=== PATIENT | female | born 1955 | race Caucasian/White ===

== ENCOUNTER 2017-03-03 13:15 | Emergency (ER) | payer MEDICAID, OTHER ==
[2017-03-03] MEDS ORDERED: Albuterol/Ipratropium 3.0-0.5 MG/3 ML Neb Soln NEB ONE (13:42)
--- NOTE | 2017-03-03 13:44 | EDM.PDOC ---
ED HISTORY OF PRESENT ILLNESS - General Chief Complaint: Cardiovascular Problem Stated Complaint: HEART ISSUES Time Seen by Provider: 03/03/17 13:30 Source of Information: Reports: Patient History Limitations: Reports: No limitations - History of Present Illness INITIAL COMMENTS - FREE TEXT/NARRATIVE: 61-year-old female presents the ED to to continued productive cough and dyspnea on exertion for the last 10 days. She fell she came down with a cold that moved into her chest. She has perhaps had a low-grade fever at times some mild diaphoresis earlier this morning. She's completed a Z-Parmjit and also a Depo- Medrol pack with minimal improvement. She has chronic COPD and known coronary disease having had a stent placed in march of last year after an [place]. She has no history of CHF. Productive sounding cough but she is not producing much sputum. She has not had any medication changes in the last 6 weeks. She's been on Spiriva and Symbicort inhalers for many years. No orthopnea or PND. She did have a flu shot last fall. Symptom Onset Date: 02/23/17 Timing/Duration: Reports: Hour(s):, Gradual onset Severity: moderate Location, General: Reports: chest (Dyspnea and productive sounding cough.) Quality: Reports: Other (Slight heaviness in her chest and some pain with coughing.) Improves with: Reports: Rest Worsens with: Reports: Movement Context, General: Denies: Activity, Exercise, Lifting, Sick contact, Trauma, Other Associated Symptoms (General): Reports: chest pain, cough (With coughing. Productive sounding cough with very little sputum production.), diaphoresis, malaise, shortness of breath, weakness. 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) - Related Data Allergies/ADRs: Allergies Allergy/AdvReac Type Severity Reaction Status Date / Time meperidine HCl [From Demerol] Allergy Rash Verified 03/03/17 13:41 tetracycline [Tetracycline] Allergy Itching Verified 03/03/17 13:41 Home Meds: Home Meds Aspirin [[place] Aspirin] 81 mg PO BEDTIME 02/25/16 [History] Budesonide/Formoterol [Symbicort 160-4.5 MCG] 2 puff INH BID 02/25/16 [History] FLUoxetine HCl [Fluoxetine HCl] 40 mg PO DAILY 02/25/16 [History] metFORMIN [Glucophage] 500 mg PO DAILY 02/25/16 [History] Fluticasone Propionate [Flonase] 2 spray NASBOTH DAILY 04/15/16 [History] Lisinopril 20 mg PO DAILY 04/15/16 [History] Metoprolol Tartrate 25 mg PO BID 04/15/16 [History] Tiotropium [Spiriva HandiHaler] 2 tab INH BEDTIME 04/15/16 [History] atorvaSTATin [Lipitor] 40 mg PO BEDTIME 04/15/16 [History] Clopidogrel [Plavix] 0 mg PO DAILY 05/02/16 [History] oxyCODONE HCl/Acetaminophen [Percocet 10-325 mg Tablet] 1 each PO Q6H PRN [History] Levofloxacin [Levaquin] 500 mg PO Q24H #10 tablet 03/03/17 [Rx] Prednisone [IMW: predniSONE] 20 mg PO ASDIRECTED #18 tab 03/03/17 [Rx] guaiFENesin [Mucinex] 600 mg PO TID #30 tab.er 03/03/17 [Rx] Past Medical History HEENT History: Reports: Impaired vision Other HEENT History: wears eyeglasses Cardiovascular History: Reports: Heart Failure, High cholesterol, Hypertension, [place], Stents (Has one stent in place. Remains on Plavix.) Respiratory History: Reports: COPD, Sleep apnea Other Respiratory History: wears C-PAP while sleeping. Gastrointestinal History: Reports: Chronic diarrhea Genitourinary History: Reports: Urinary incontinence Musculoskeletal History: Reports: Back pain, chronic, Osteoarthritis, Other ( see below) Other Musculoskeletal History: DDD, bulging L5 Neurological History: Reports: Other (see below) Other Neuro History: restless legs Psychiatric History: Reports: Anxiety, Depression Endocrine/Metabolic History: Reports: Diabetes, type II - Past Surgical History GI Surgical History: Reports: Cholecystectomy Female Surgical History: Reports: Tubal ligation Neurological Surgical History: Reports: C-Spine Social & Family History - Family History Cardiac: Reports: Aneurysm, [place] - Tobacco Use Smoking Status *Q: Current Every Day Smoker Years of Tobacco use: 40 Packs/Tins Daily: 0.1 Second Hand Smoke Exposure: No - Recreational Drug Use Recreational Drug Use: No - Living Situation & Occupation Living situation: Reports: single, alone Occupation: employed (physical laboratory assistant) ED ROS GENERAL - Review of Systems Review Of Systems: See Below Constitutional: Reports: chills, malaise, weakness, fatigue, diaphoresis ( Little diaphoresis this morning.). Denies: decreased appetite, weight loss HEENT: Reports: Throat pain (Mild) Respiratory: Reports: Shortness of Breath, Wheezing, Cough (Productive sounding cough but). Denies: Pleuritic Chest Pain, Hemoptysis ( animal sputum production produce.) Cardiovascular: Reports: Chest pain (Upper mid chest from coughing.), Blood pressure problem (Lately blood pressures been known to be running low like 96- 98 systolic.), Dyspnea on exertion. Denies: Claudication, Edema, Lightheadedness, Orthopnea, Palpitations Endocrine: Reports: fatigue GI/Abdominal: Reports: No symptoms : Reports: no symptoms Musculoskeletal: Reports: no symptoms Skin: Reports: no symptoms Neurological: Reports: No Symptoms ED EXAM, GENERAL - Physical Exam Exam: See Below Exam Limited By: No limitations General Appearance: alert, WD/WN, no apparent distress, other (O2 sat to 94% on room air) Eye Exam: bilateral eye: normal inspection Ears: normal TMs Nose: other Throat/Mouth: Normal inspection, Normal lips, Normal teeth, Normal oropharynx Head: atraumatic, normocephalic Neck: normal inspection, supple, non-tender, full range of motion, other (No jugular venous pulsation elevation). No: carotid bruit, lymphadenopathy (L), lymphadenopathy (R), thyromegaly Respiratory/Chest: respiratory distress (Mild tachypnea at rest.), decreased breath sounds (Bilateral expiratory wheezing particularly pronounced in the base of both lungs. Mildly decreased entry to both bases), rhonchi (Throughout all lung [place] perhaps a little worse on the left compared to the right. Some clearing with coughing.), wheezing Cardiovascular: normal peripheral pulses, regular rate, rhythm, no edema, no gallop, no murmur GI/Abdominal: normal bowel sounds, soft, non tender, no organomegaly, no distention Back Exam: normal inspection, full range of motion. No: CVA tenderness (L), CVA tenderness (R) Extremities: normal inspection, normal range of motion, non-tender, no pedal edema, normal capillary refill Neurological: alert, oriented, CN II-XII intact, normal cognition, no motor/ sensory deficits Psychiatric: normal affect, normal mood Skin Exam: Warm, Dry, Intact, Normal color, No rash EKG INTERPRETATION EKG Date: 03/03/17 Time: 13:30 Rhythm: NSR Rate (beats/min): 96 [place]: normal P-wave: present QRS: other (There are Q waves in leads 23 and aVF that are less than 25% of the QRS complex and are usually considered insignificant. 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.) ST-T: normal QT: normal Course - Vital Signs Last Recorded V/S: Last Vital Signs Temp 35.4 C 03/03/17 13:34 Pulse 92 03/03/17 13:34 Resp 20 03/03/17 13:34 BP 98/65 03/03/17 13:34 Pulse Ox 96 03/03/17 14:03 - Orders/Labs/Meds Orders: Active Orders 24 hr Category Date Time Status EKG Documentation Completion [RC] STAT Care 03/03/17 13:40 Active RT Aerosol Therapy [RC] ASDIRECTED Care 03/03/17 13:42 Active Chest 2V [CR] Stat Exams 03/03/17 13:40 Taken INFLUENZA A+B AG SCREEN [RM] Stat Lab 03/03/17 14:21 Received URINALYSIS W/MICROSCOPIC [UA W/MICROSCOPIC] [URIN] Stat Lab 03/03/17 13:41 Uncollected Labs: Laboratory Tests 03/03/17 03/03/17 03/03/17 Range/Units 13:33 13:33 13:33 WBC 8.38 (3.98-10.04) K/mm3 RBC 4.50 (3.98-5.22) M/mm3 Hgb 14.5 (11.2-15.7) gm/L Hct 43.5 (34.1-44.9) % MCV 96.7 H (79.4-94.8) fl MCH 32.2 (25.6-32.2) pg MCHC 33.3 (32.2-35.5) g/dl RDW Std Deviation 46.5 H (36.4-46.3) fL Plt Count 343 (182-369) K/mm3 MPV 8.8 L (9.4-12.3) fl Neutrophils % (Manual) 63 H (40-60) % Band Neutrophils % 2 (0-10) % Lymphocytes % (Manual) 30 (20-40) % Atypical Lymphs % 0 % Monocytes % (Manual) 3 (2-10) % Eosinophils % (Manual) 2 (0.7-5.8) % Basophils % (Manual) 0 L (0.1-1.2) Platelet Estimate Adequate Plt Morphology Comment Normal RBC Morph Comment Normal Sodium 138 (136-145) mEq/L Potassium 4.1 (3.5-5.1) mEq/L Chloride 101 (98-107) mEq/L Carbon Dioxide 29 (21-32) mEq/L Anion Gap 12.1 (5-15) BUN 19 H (7-18) mg/dL Creatinine 0.9 (0.55-1.02) mg/dL Est Cr Clr Drug Dosing 49.53 mL/min Estimated GFR (MDRD) > 60 (>60) mL/min BUN/Creatinine Ratio 21.1 H (14-18) Glucose 120 H (80-115) mg/dL Calcium 9.6 (8.5-10.1) mg/dL Total Bilirubin 0.4 (0.2-1.0) mg/dL AST 19 (15-37) U/L ALT 37 (14-59) U/L Alkaline Phosphatase 83 (46-116) U/L CK-MB (CK-2) 1.1 (0-3.6) ng/ml Troponin I < 0.017 (0.00-0.056) ng/mL C-Reactive Protein < 0.2 (<1.0) mg/dL B-Natriuretic Peptide 73 (0-100) pg/mL Total Protein 7.0 (6.4-8.2) g/dl Albumin 3.9 (3.4-5.0) g/dl Globulin 3.1 gm/dL Albumin/Globulin Ratio 1.3 (1-2) Mycoplasma pneumon IgM Negative (NEGATIVE) Meds: Medications Discontinued Medications Generic Name Dose Route Start Last Admin Trade Name Freq PRN Reason Stop Dose Admin Albuterol/Ipratropium 3 ml 03/03/17 13:42 03/03/17 14:03 Duoneb 3.0-0.5 Mg/3 Ml NEB 03/03/17 13:43 3 ml ONETIME ONE Administration - Radiology Interpretation Free Text/Narrative:: 61-year-old female presents to the ED for evaluation of persistent paroxysmal cough and chest congestion and shortness of breath. Has been ill for about 10 days. Not aware of any fever per se. She's been on a course of Z-Parmjit and a course of Depo-Medrol without much benefit. She has COPD and uses her to troponin and Spiriva daily. Isn't able to produce much in the way of sputum. She does have a history of coronary disease having had myocardial infarction and one stent placement back in March last year. No history of congestive heart failure. She has no true orthopnea or PND. No hemoptysis. No history of DVT or recent prolonged O2 sats are 94% on room air with mild tachypnea at 20 breaths per minute. Plan 2 view chest x-ray routine labs including a BMP and cardiac markers. ECG shows sinus rhythm at 96 per minute with no evidence of acute ischemic changes. - Re-Assessments/Exams Free Text/Narrative Re-Assessment/Exam: 03/03/17 14:00 2 view chest x-ray has been completed. There is mild hyperinflation of the lung [place]. However the lungs are clear without any evidence of pneumonia or pulmonary vascular congestion. 03/03/17 14:42 labs are back and reveal a normal white count at 8.38 with 63% it fills and 2% bands. Hemoglobin is 14.5 hematocrit is 43.5. MCV is mildly elevated at 96.7. Platelets normal 243,000. Chemistry is normal with a blood sugar of 120 CRP is less than 0.2. Patient be treated with a more prolonged course of course of prednisone using 20 mg morning and evening for 6 days then one tablet in the morning only for further 6 days. Mucinex 600 mg 3 times daily for 10 days to breakup sputum. Levaquin 500 mg once daily for the next 10 days as well. Cardiac markers were normal and BMP was less than 100. Therefore no evidence of heart related illness causing her dyspnea. She continues to have problems she may have to adopt a home nebulizer treatment regime to help medications which do. Her lungs to reduce the inflammation. Departure - Departure Time of Disposition: 14:33 Disposition: Home, Self-Care 01 Condition: fair Clinical Impression: Bronchitis, Acute exacerbation of chronic obstructive pulmonary disease Prescriptions: Levofloxacin [Levaquin] 500 mg PO Q24H #10 tablet Prednisone [IMW: predniSONE] 20 mg PO ASDIRECTED #18 tab guaiFENesin [Mucinex] 600 mg PO TID #30 tab.er Referrals: Gogo Cheney, [employer] [Primary Care Provider] - Forms: ED Department Discharge Additional Instructions: Evaluation in emergency him today in regards to persistent cough and increasing shortness of breath over the last 10 days. History of chronic obstructive pulmonary disease for which you take Spiriva and Symbicort . Known history of coronary disease with previous heart attack and one stent placement. Evaluation carried out to the ED with does not reveal any evidence of heart related illness. There is no extra fluid in the lungs or evidence of heart problems. Chest x-ray is clear with no evidence of any pneumonia. Diagnosis is bronchitis with aggravation of your chronic obstructive pulmonary disease. Going to treat you with a ten-day course of Levaquin 500 mg once daily to clear up any potential infection the lung. Use prednisone 20 mg in the morning and with supper for 6 days and then one tablet in the morning only for further 6 days to reduce inflammation of the lungs and Mucinex 600 mg 3 times daily for the next 10 days to loosen up secretions so that she can cough sputum up. Followup with personal care physician in 10 days' time or sooner if any other problems occur. Of note her blood sugars may run a little high we'll you on the prednisone but will return to normal vision within 4 or 5 days of finishing the prednisone - My Orders Last 24 Hours: My Active Orders 03/03/17 13:40 EKG Documentation Completion [RC] STAT Chest 2V [CR] Stat 03/03/17 13:41 URINALYSIS W/MICROSCOPIC [UA W/MICROSCOPIC] [URIN] Stat 03/03/17 13:42 RT Aerosol Therapy [RC] ASDIRECTED 03/03/17 14:21 INFLUENZA A+B AG SCREEN [RM] Stat - Assessment/Plan Last 24 Hours: My Active Orders 03/03/17 13:40 EKG Documentation Completion [RC] STAT Chest 2V [CR] Stat 03/03/17 13:41 URINALYSIS W/MICROSCOPIC [UA W/MICROSCOPIC] [URIN] Stat 03/03/17 13:42 RT Aerosol Therapy [RC] ASDIRECTED 03/03/17 14:21 INFLUENZA A+B AG SCREEN [RM] Stat
--- NOTE | 2017-03-03 14:42 | CR ---
Chest: Two views of the chest were obtained. Comparison: Previous chest x-ray of 03/11/16. Heart size and mediastinum are normal. Lungs are clear with no acute infiltrates. Previous cervical spine surgery is noted. Scattered degenerative spurring within the spine is seen. Impression: 1. Incidental findings. Nothing acute is identified on two-view chest x-ray. Diagnostic code #2
[2017-03-03 15:19] VITALS: BP 108/74
== END 2017-03-03 15:10 | disposition home or self-care (01) ==
LOC: JD.ED 13:15
DX: J44.0 Chronic obstructive pulmonary disease with (acute) lower respiratory infection (principal); J20.9 Acute bronchitis, unspecified; J44.1 Chronic obstructive pulmonary disease with (acute) exacerbation; I11.0 Hypertensive heart disease with heart failure; I50.9 Heart failure, unspecified; E11.9 Type 2 diabetes mellitus without complications; Z79.84 Long term (current) use of oral hypoglycemic drugs; M19.90 Unspecified osteoarthritis, unspecified site; F32.9 Major depressive disorder, single episode, unspecified; F41.9 Anxiety disorder, unspecified; F17.200 Nicotine dependence, unspecified, uncomplicated; Z88.6 Allergy status to analgesic agent; Z88.1 Allergy status to other antibiotic agents; Z79.82 Long term (current) use of aspirin; Z79.02 Long term (current) use of antithrombotics/antiplatelets; Z79.899 Other long term (current) drug therapy
CPT/HCPCS: 36415; 71020; 71020-26; 80053; 82553; 83880; 84484; 85025; 86140; 86738; 87804; 93005; 94664; 99284; 99285-25

== ENCOUNTER 2017-12-08 14:31 | Emergency (ER) | payer MEDICAID ==
[2017-12-08 14:41] VITALS: BP 94/66
[2017-12-08] MEDS ORDERED: Sodium Chloride 0.9% 10 ML Syringe FLUSH PRN (14:55)
--- NOTE | 2017-12-08 14:55 | EDM.PDOC ---
ED HPI GENERAL MEDICAL PROBLEM - General Chief Complaint: Respiratory Problem Stated Complaint: CHEST DISCOMFORT AND SOB Time Seen by Provider: 12/08/17 14:54 Source of Information: Reports: Patient History Limitations: Reports: No Limitations - History of Present Illness INITIAL COMMENTS - FREE TEXT/NARRATIVE: 62-year-old female sent across from [facility] where she presented with dyspnea and cyanosis centrally nose and ache relief in her fingers. Patient has a history of COPD and sleep apnea syndrome and previous myocardial infarctions with CHF. L for the last 2 weeks with productive cough. 2 weeks ago she was seen with bronchitis negative chest x-ray for pneumonia. She was treated with a Z-Parmjit and a weaning course of prednisone. She was seen a week later and continued to have paroxysmal productive cough and was then placed back on a short course of prednisone and her Bumex 1 mg daily. When she first started the Bumex she states she lost 8 pounds in 2 days. She does not feel like her legs are swollen at all. She has somebody paroxysmal cough with a clear phlegm. She uses a CPAP machine at bedtime. Hasn't been sleeping very well as of late. But can't lay flat to sleep. Appetite remains quite good. She plays out very easily on minimal exertion. She reports her sats were as low as 86% when she attended the clinic last. Usually she is around 94% on room air .Does not use oxygen at home Onset: Gradual (Over the last 3-4 days.) Onset Date: 12/04/17 (Just simply not getting better as since adding Bumex and prednisone to her treatment plan.) Duration: Day(s): Location: Reports: Chest (Productive cough shortness of breath on minimal exertion.) Quality: Reports: Other Severity: Moderate (Dyspnea.) Improves with: Reports: Rest Worsens with: Reports: Movement (Any can of exertion makes her dyspneic.) Context: Denies: Activity, Exercise, Lifting, Sick Contact, Trauma, Other Associated Symptoms: Reports: Cough, cough w sputum, Fever/Chills, Malaise, Shortness of Breath, Weakness. Denies: Confusion, Chest Pain, Diaphoresis ( Mostly clear.), Headaches (Did have fever with initial illness 2 weeks ago but not since.), Loss of Appetite, Nausea/Vomiting, Rash, Seizure, Syncope Treatments COLLECTION COORDINATOR: Reports: Other (see below) (None.) - Related Data Allergies Allergy/AdvReac Type Severity Reaction Status Date / Time meperidine HCl [From Demerol] Allergy Rash Verified 12/08/17 14:36 tetracycline [Tetracycline] Allergy Itching Verified 12/08/17 14:36 Home Meds: Home Meds Aspirin [Upson Aspirin] 81 mg PO DAILY 02/25/16 [History] Budesonide/Formoterol [Symbicort 160-4.5 MCG] 2 puff INH BID 02/25/16 [History] metFORMIN [Glucophage] 500 mg PO DAILY 02/25/16 [History] Lisinopril 40 mg PO DAILY 04/15/16 [History] Metoprolol Tartrate 100 mg PO BID 04/15/16 [History] Tiotropium [Spiriva HandiHaler] 2 puff INH DAILY 04/15/16 [History] atorvaSTATin [Lipitor] 40 mg PO DAILY 04/15/16 [History] Clopidogrel [Plavix] 75 mg PO DAILY 05/02/16 [History] oxyCODONE HCl/Acetaminophen [Percocet 10-325 mg Tablet] 1 each PO Q6H PRN [History] Prednisone [IMW: predniSONE] 20 mg PO ASDIRECTED #18 tab 03/03/17 [Rx] Albuterol [IJD: Albuterol] 2.5 mg NEB Q4H PRN #120 ml 12/08/17 [Rx] Albuterol [Proventil Neb Soln] 2.5 mg INH QID 12/08/17 [History] Albuterol/Ipratropium [DuoNeb 3.0-0.5 MG/3 ML] 3 ml NEB QID #80 neb 12/08/17 [Rx ] Bumetanide [Bumex] 2 mg PO DAILY 12/08/17 [History] DULoxetine [Cymbalta] 60 mg PO DAILY 12/08/17 [History] Diltiazem [Diltiazem XR] 240 mg PO DAILY 12/08/17 [History] Gabapentin [Neurontin] 300 mg PO TID 12/08/17 [History] Hydrochlorothiazide 25 mg PO DAILY 12/08/17 [History] Metaxalone [Metaxall] 800 mg PO TID 12/08/17 [History] Psyllium Husk [Metamucil] 0.4 gm PO DAILY 12/08/17 [History] guaiFENesin [Mucinex] 600 mg PO BID 12/08/17 [History] traZODone HCl [Trazodone HCl] 50 mg PO BEDTIME PRN 12/08/17 [History] Past Medical History HEENT History: Reports: Impaired Vision Other HEENT History: wears eyeglasses Cardiovascular History: Reports: Heart Failure, High Cholesterol, Hypertension, NM, Stents Respiratory History: Reports: COPD, Sleep Apnea Other Respiratory History: wears C-PAP while sleeping. Gastrointestinal History: Reports: Chronic Diarrhea Genitourinary History: Reports: Urinary Incontinence Musculoskeletal History: Reports: Back Pain, Chronic, Osteoarthritis, Other ( See Below) Other Musculoskeletal History: DDD, bulging L5 Neurological History: Reports: Other (See Below) Other Neuro History: restless legs Psychiatric History: Reports: Anxiety, Depression Endocrine/Metabolic History: Reports: Diabetes, Type II - Infectious Disease History Infectious Disease History: Reports: Chicken Pox, Measles - Past Surgical History Female Surgical History: Reports: Tubal Ligation Social & Family History - Family History Family Medical History: Noncontributory Cardiac: Reports: Aneurysm, NM - Tobacco Use Smoking Status *Q: Current Every Day Smoker Years of Tobacco use: 45 Packs/Tins Daily: 0.5 Second Hand Smoke Exposure: No - Caffeine Use Caffeine Use: Reports: Tea Caffeine Use Comment: Daily - Recreational Drug Use Recreational Drug Use: No - Living Situation & Occupation Living situation: Reports: Single, Alone Occupation: Employed ED ROS GENERAL - Review of Systems Review Of Systems: See Below Constitutional: Reports: Fever, Malaise, Weakness, Fatigue, Weight Loss ( Prostate pounds of weight after starting Bumex one week ago --.). Denies: Chills (Only with initial onset of illness 2 weeks ago.) HEENT: Reports: Glasses Respiratory: Reports: Shortness of Breath, Wheezing, Cough, Sputum. Denies: Pleuritic Chest Pain, Hemoptysis, Other (Mostly clear.) Cardiovascular: Reports: Blood Pressure Problem, Dyspnea on Exertion. Denies: Chest Pain, Claudication, Edema, Lightheadedness, Orthopnea, Palpitations Endocrine: Reports: Fatigue GI/Abdominal: Denies: Abdominal Pain, Anorexia, Black Stool, Bloody Stool, Constipation, Diarrhea, Decreased Appetite, Difficulty Swallowing, Distension, Flatus, Hematemesis, Hematochezia, Melena : Reports: Frequency Musculoskeletal: Reports: Back Pain Skin: Reports: No Symptoms Neurological: Reports: No Symptoms Psychiatric: Reports: No Symptoms Hematologic/Lymphatic: Reports: No Symptoms Immunologic: Reports: No Symptoms ED EXAM, GENERAL - Physical Exam Exam: See Below Exam Limited By: No Limitations General Appearance: Alert, WD/WN, No Apparent Distress, Other (No evidence of a cooler central cyanosis on my examination. O2 sats ranged from 91-94% on room air.) Eye Exam: Bilateral Eye: Normal Inspection Ears: Normal TMs Nose: Normal Inspection, Normal Mucosa, No Blood. 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 She's not sure which levels were fused.). No: Lymphadenopathy (L), Lymphadenopathy (R) Respiratory/Chest: No Respiratory Distress, No Accessory Muscle Use, Chest Non- Tender, Decreased Breath Sounds (Mildly decreased breath sounds to the lower 20 % of lung catalan.), Wheezing (Diffuse wheezing throughout both lung catalan.). No: Normal Breath Sounds, Crackles, Rales, Accessory Muscle Use Cardiovascular: Normal Peripheral Pulses, Regular Rate, Rhythm, No Edema, No Gallop, No Murmur, No Rub Peripheral Pulses: 1+: Posterior Tibial (L), Posterior Tibial (R), Dorsalis Pedis (L), Dorsalis Pedis (R) GI/Abdominal: Normal Bowel Sounds, Soft, Non-Tender, No Organomegaly Back Exam: Normal Inspection, Full Range of Motion. No: CVA Tenderness (L), CVA Tenderness (R) Extremities: Normal Inspection, Normal Range of Motion, Non-Tender, No Pedal Edema Neurological: Alert, Oriented, CN II-XII Intact, Normal Cognition Psychiatric: Normal Affect, Normal Mood Skin Exam: Warm, Dry, Intact, Normal Color, No Rash EKG INTERPRETATION EKG Date: 12/08/17 Time: 14:55 Rhythm: NSR Rate (Beats/Min): 93 [place]: Normal P-Wave: Present QRS: Normal ST-T: Normal QT: Normal Course - Vital Signs Last Recorded V/S: Last Vital Signs Temp 35.4 C 12/08/17 14:36 Pulse 96 12/08/17 14:36 Resp 14 12/08/17 14:36 BP 94/66 12/08/17 14:36 Pulse Ox 94 L 12/08/17 16:50 - Orders/Labs/Meds Labs: Laboratory Tests 12/08/17 12/08/17 12/08/17 Range/Units 14:45 14:45 14:45 WBC 8.38 (3.98-10.04) K/mm3 RBC 5.16 (3.98-5.22) M/mm3 Hgb 16.1 H (11.2-15.7) gm/L Hct 46.3 H (34.1-44.9) % MCV 89.7 (79.4-94.8) fl MCH 31.2 (25.6-32.2) pg MCHC 34.8 (32.2-35.5) g/dl RDW Std Deviation 42.7 (36.4-46.3) fL Plt Count 325 (182-369) K/mm3 MPV 9.2 L (9.4-12.3) fl Neutrophils % (Manual) 74 H (40-60) % Band Neutrophils % 0 (0-10) % Lymphocytes % (Manual) 20 (20-40) % Atypical Lymphs % 3 % Monocytes % (Manual) 3 (2-10) % Eosinophils % (Manual) 0 L (0.7-5.8) % Basophils % (Manual) 0 L (0.1-1.2) Platelet Estimate Adequate Plt Morphology Comment Normal RBC Morph Comment Normal PT (8.0-13.0) SECONDS INR D-Dimer, Quantitative 0.24 (0.19-0.59) mg/L Puncture Site ABG pH (7.35-7.45) ABG pCO2 (35.0-45.0) mmHg ABG pO2 (80.0-100.0) mmHg ABG HCO3 (22.0-26.0) meq/L ABG O2 Saturation (96.0-97.0) % ABG Base Excess (-2-2.0) Philip Test O2 Delivery Device FiO2 (21.00-100.00) % Sodium 130 L (136-145) mEq/L Potassium 3.6 (3.5-5.1) mEq/L Chloride 88 L (98-107) mEq/L Carbon Dioxide 31 (21-32) mEq/L Anion Gap 14.6 (5-15) BUN 29 H (7-18) mg/dL Creatinine 1.3 H (0.55-1.02) mg/dL Est Cr Clr Drug Dosing 35.49 mL/min Estimated GFR (MDRD) 42 (>60) mL/min BUN/Creatinine Ratio 22.3 H (14-18) Glucose 225 H (80-115) mg/dL Calcium 10.6 H (8.5-10.1) mg/dL Magnesium (1.8-2.4) mg/dl Total Bilirubin 0.8 (0.2-1.0) mg/dL AST 24 (15-37) U/L ALT 35 (14-59) U/L Alkaline Phosphatase 67 (46-116) U/L CK-MB (CK-2) 1.5 (0-3.6) ng/ml Troponin I < 0.017 (0.00-0.056) ng/mL C-Reactive Protein (<1.0) mg/dL NT-Pro-B Natriuret Pep (0-125) pg/mL Total Protein 7.7 (6.4-8.2) g/dl Albumin 4.3 (3.4-5.0) g/dl Globulin 3.4 gm/dL Albumin/Globulin Ratio 1.3 (1-2) 12/08/17 12/08/17 12/08/17 Range/Units 14:45 14:45 14:45 WBC (3.98-10.04) K/mm3 RBC (3.98-5.22) M/mm3 Hgb (11.2-15.7) gm/L Hct (34.1-44.9) % MCV (79.4-94.8) fl MCH (25.6-32.2) pg MCHC (32.2-35.5) g/dl RDW Std Deviation (36.4-46.3) fL Plt Count (182-369) K/mm3 MPV (9.4-12.3) fl Neutrophils % (Manual) (40-60) % Band Neutrophils % (0-10) % Lymphocytes % (Manual) (20-40) % Atypical Lymphs % % Monocytes % (Manual) (2-10) % Eosinophils % (Manual) (0.7-5.8) % Basophils % (Manual) (0.1-1.2) Platelet Estimate Plt Morphology Comment RBC Morph Comment PT 9.5 (8.0-13.0) SECONDS INR 0.88 D-Dimer, Quantitative (0.19-0.59) mg/L Puncture Site ABG pH (7.35-7.45) ABG pCO2 (35.0-45.0) mmHg ABG pO2 (80.0-100.0) mmHg ABG HCO3 (22.0-26.0) meq/L ABG O2 Saturation (96.0-97.0) % ABG Base Excess (-2-2.0) Philip Test O2 Delivery Device FiO2 (21.00-100.00) % Sodium (136-145) mEq/L Potassium (3.5-5.1) mEq/L Chloride (98-107) mEq/L Carbon Dioxide (21-32) mEq/L Anion Gap (5-15) BUN (7-18) mg/dL Creatinine (0.55-1.02) mg/dL Est Cr Clr Drug Dosing mL/min Estimated GFR (MDRD) (>60) mL/min BUN/Creatinine Ratio (14-18) Glucose (80-115) mg/dL Calcium (8.5-10.1) mg/dL Magnesium 1.7 L (1.8-2.4) mg/dl Total Bilirubin (0.2-1.0) mg/dL AST (15-37) U/L ALT (14-59) U/L Alkaline Phosphatase (46-116) U/L CK-MB (CK-2) (0-3.6) ng/ml Troponin I (0.00-0.056) ng/mL C-Reactive Protein < 0.2 (<1.0) mg/dL NT-Pro-B Natriuret Pep (0-125) pg/mL Total Protein (6.4-8.2) g/dl Albumin (3.4-5.0) g/dl Globulin gm/dL Albumin/Globulin Ratio (1-2) 12/08/17 12/08/17 Range/Units 14:49 16:55 WBC (3.98-10.04) K/mm3 RBC (3.98-5.22) M/mm3 Hgb (11.2-15.7) gm/L Hct (34.1-44.9) % MCV (79.4-94.8) fl MCH (25.6-32.2) pg MCHC (32.2-35.5) g/dl RDW Std Deviation (36.4-46.3) fL Plt Count (182-369) K/mm3 MPV (9.4-12.3) fl Neutrophils % (Manual) (40-60) % Band Neutrophils % (0-10) % Lymphocytes % (Manual) (20-40) % Atypical Lymphs % % Monocytes % (Manual) (2-10) % Eosinophils % (Manual) (0.7-5.8) % Basophils % (Manual) (0.1-1.2) Platelet Estimate Plt Morphology Comment RBC Morph Comment PT (8.0-13.0) SECONDS INR D-Dimer, Quantitative (0.19-0.59) mg/L Puncture Site Lt radial ABG pH 7.51 H (7.35-7.45) ABG pCO2 42.9 (35.0-45.0) mmHg ABG pO2 56.0 L (80.0-100.0) mmHg ABG HCO3 34.0 H (22.0-26.0) meq/L ABG O2 Saturation 90.8 L (96.0-97.0) % ABG Base Excess 9.9 H (-2-2.0) Philip Test Positive O2 Delivery Device Room air FiO2 0.00 L (21.00-100.00) % Sodium (136-145) mEq/L Potassium (3.5-5.1) mEq/L Chloride (98-107) mEq/L Carbon Dioxide (21-32) mEq/L Anion Gap (5-15) BUN (7-18) mg/dL Creatinine (0.55-1.02) mg/dL Est Cr Clr Drug Dosing mL/min Estimated GFR (MDRD) (>60) mL/min BUN/Creatinine Ratio (14-18) Glucose (80-115) mg/dL Calcium (8.5-10.1) mg/dL Magnesium (1.8-2.4) mg/dl Total Bilirubin (0.2-1.0) mg/dL AST (15-37) U/L ALT (14-59) U/L Alkaline Phosphatase (46-116) U/L CK-MB (CK-2) (0-3.6) ng/ml Troponin I (0.00-0.056) ng/mL C-Reactive Protein (<1.0) mg/dL NT-Pro-B Natriuret Pep 81 (0-125) pg/mL Total Protein (6.4-8.2) g/dl Albumin (3.4-5.0) g/dl Globulin gm/dL Albumin/Globulin Ratio (1-2) Meds: Medications Discontinued Medications Generic Name Dose Route Start Last Admin Trade Name Freq PRN Reason Stop Dose Admin Albuterol/Ipratropium 3 ml 12/08/17 16:50 12/08/17 17:07 Duoneb 3.0-0.5 Mg/3 Ml NEB 12/08/17 16:51 3 ml ONETIME ONE Administration Sodium Chloride 10 ml 12/08/17 14:55 12/08/17 14:58 Saline Flush FLUSH 10 ml ASDIRECTED PRN Administration Keep Vein Open - Radiology Interpretation Free Text/Narrative:: 62-year-old female presents to the ED at the request of her primary care provider at [facility] because of persistent cough or sputum production dyspnea on minimal exertion and sats of 91-94% on room air. Patient has a history of COPD and history of myocardial infarction with mild CHF in the past. She's been ill with bronchitis and upper respiratory tract infection off and on for the last 2 weeks. Her provider appreciated central cyanosis today and a gross cyanosis. She was therefore sent to the ED for further evaluation the patient herself is known to me. She is her usual happy self. She is not appear to be in any significant distress. No ankle cyanosis or central cyanosis appreciated by me. Lung sounds show diffuse expiratory wheezes throughout both lung catalan. I could not hear any definitive crackles. There is no jugular venous pulsation elevation. No dependent edema. Appears that she still experiencing an exacerbation of COPD. Plan routine labs including a blood gas will be done. Sats are sitting around 91% on room air. - Re-Assessments/Exams Free Text/Narrative Re-Assessment/Exam: 12/08/17 15:42 ECG shows sinus rhythm without any signs of ischemia. ABG show a alkalosis with a pH of 7.51. PCO2 is 42.9 i.e. mild retention. PO2 is 56. Is therefore hypoxic. O2 sats were 86.5%. Patient be started on 2 L of oxygen by nasal cannula. X-ray report is lungs are clear with no acute densities. Degenerative spurring noted within the mid and lower thoracic spine previous cervical spine surgeries appreciated. Heart size and mediastinum are within normal limits. 12/08/17 17:55 BNP came back normal at 89. Therefore current hypoxia and dyspnea are secondary to an acute exacerbation of her COPD. She is not keen on staying in the hospital at this time. She is on steroids and I agree with the current treatment plan. Overall she is needs oxygen. While applies for this because of a PO2 of only 56 on room air. She desaturates well below 86 when she tries to walk a bit. She continues to smoke and this remains a jay to try and stop. She needs to follow up to have home oxygen available to her. Advised to call Bhavin Cheney tomorrow to arrange an appointment to fill out the paperwork for med [facility] available provide this to her. The Bumex can be stopped global she may retain fluid during the initial doses of steroids. At present BNP is only 89 and her creatinine is 1.3 with a BUN of 29 and a sodium of 1:30 for which the Bumex is partially responsible. I'm going to place her on DuoNeb every 6 hours for the next week to 10 days until this viral infection her lungs settles down. I will also write a prescription for albuterol nebs that she can use when necessary for dyspnea. At present she is significantly hypoxic on minimal exertion. She cannot climb a full flight of stairs without having to stop. Oxygen need be may just be transient but of course she is headed long- term for chronic oxygen supplementation. Departure - Departure Time of Disposition: 18:30 Disposition: Home, Self-Care 01 Condition: Fair Clinical Impression: COPD with acute exacerbation, Acute exacerbation of chronic obstructive pulmonary disease (COPD), Hypoxemia - Discharge Information Prescriptions: Albuterol [IJD: Albuterol] 2.5 mg NEB Q4H PRN #120 ml PRN Reason: Wheezing/ dyspnea Albuterol/Ipratropium [DuoNeb 3.0-0.5 MG/3 ML] 3 ml NEB QID #80 neb Instructions: Hypoxemia, Chronic Obstructive Pulmonary Disease, [id number] Referrals: Gogo Cheney, [employer] [Primary Care Provider] - Forms: ED Department Discharge Additional Instructions: Evaluation in the emergency him today in regards to increasing shortness of breath on minimal exertion after experiencing an upper respiratory tract infection two weeks ago. Didn't injure of paroxysmal cough of clear sputum. No associated fever or chills. Appetite remains fair. You currently on a weaning dose of steroids which I concur with. Lab tests ordered out today that there is no evidence of heart related illness with a normal BNP and no evidence of congestive failure contributing to your shortness of breath. It appears that your current shortness of breath/dyspnea is secondary to exacerbation of chronic obstructive pulmonary disease or emphysema. As you are well aware this is aggravated by continuing to smoke cigarettes. Blood gases done today reveal that your oxygen level is at 56 normal should be 98. When it travels below 50 this is called respiratory failure. It therefore appears that you've reached a point where you need home oxygen therapy at least in the near future 3-4 weeks until this virus system clears your lungs. Please follow-up with Ba Cheney in this regard to get this set up through [facility] as I do not have the appropriate forms to arrange for home oxygen through the ED. I'm going to suggest use of the DuoNeb every 6 hours or 4 times daily for the next 10-14 days and then see how you are. After that we may be able to wean it to first thing in the morning and at bedtime with albuterol use in between. May also continue use albuterol neb in between the DuoNeb if needed for shortness of breath and/or wheezing. Finish up the steroids as previously prescribed. As discussed. Bumex is to be discontinued. Step on a scale daily and if you are gaining more than a pound over 1 day then take the Bumex that day. Of note the influenza screen was negative today.
--- NOTE | 2017-12-08 15:27 | CR ---
Chest: Two views of the chest were obtained. Comparison: Prior chest x-ray of 03/03/17. Heart size and mediastinum are within normal limits. Lungs are clear with no acute lung densities. Degenerative spurring is noted within the mid and lower thoracic spine. Previous cervical spine surgery is noted. Impression: 1. Incidental findings. Nothing acute is seen. Diagnostic code #2
[2017-12-08] MEDS ORDERED: Albuterol/Ipratropium 3.0-0.5 MG/3 ML Neb Soln NEB ONE (16:50)
== END 2017-12-08 18:39 | disposition home or self-care (01) ==
LOC: JD.ED 14:31
DX: J44.1 Chronic obstructive pulmonary disease with (acute) exacerbation (principal); R09.02 Hypoxemia; I11.9 Hypertensive heart disease without heart failure; I50.9 Heart failure, unspecified; E78.00 Pure hypercholesterolemia, unspecified; E11.9 Type 2 diabetes mellitus without complications; I25.2 Old myocardial infarction; F17.210 Nicotine dependence, cigarettes, uncomplicated; Z88.5 Allergy status to narcotic agent; Z88.1 Allergy status to other antibiotic agents; Z79.82 Long term (current) use of aspirin; Z79.899 Other long term (current) drug therapy; Z79.84 Long term (current) use of oral hypoglycemic drugs
CPT/HCPCS: 36415; 36600; 71046; 80053; 82553; 82803; 83735; 83880; 84484; 85025; 85379; 85610; 86140; 87804; 93005; 94640; 99284; J7050; 93010; 99285

== ENCOUNTER 2018-07-23 11:18 | Emergency (ER) | payer MEDICAID ==
[2018-07-23 11:34] VITALS: BP 94/67
[2018-07-23] MEDS ORDERED: Ketorolac 30 MG/ML SDV IM ONE (11:53)
--- NOTE | 2018-07-23 11:56 | EDM.PDOC ---
ED HPI GENERAL MEDICAL PROBLEM - General Chief Complaint: Lower Extremity Injury/Pain Stated Complaint: R KNEE PAIN Time Seen by Provider: 07/23/18 11:34 Source of Information: Reports: Patient, RN Notes Reviewed - History of Present Illness INITIAL COMMENTS - FREE TEXT/NARRATIVE: 63 year old female comes in with R knee pain. Started during the night bending knee, using leg to move covers off of her bed to get out of bed. No popping sensation but onset of pain posterior R knee worse with weight bearing, unable to totally extend knee due to pain R posterior knee with that motion. Takes oxycodone in addition to other pain meds for chronic low back pain. Took an oxycodone about 4 hours ago. Right Knee Pain Score (Numeric/FACES): 9 - Related Data Allergies Allergy/AdvReac Type Severity Reaction Status Date / Time meperidine HCl [From Demerol] Allergy Rash Verified 07/14/18 14:10 tetracycline [Tetracycline] Allergy Itching Verified 07/14/18 14:10 varenicline [From Chantix] Allergy Other Verified 07/23/18 11:37 Home Meds: Home Meds Aspirin [[place] Aspirin] 81 mg PO DAILY 02/25/16 [History] Budesonide/Formoterol [Symbicort 160-4.5 MCG] 2 puff INH BID 02/25/16 [History] metFORMIN [Glucophage] 500 mg PO BID 02/25/16 [History] Lisinopril 40 mg PO DAILY 04/15/16 [History] atorvaSTATin [Lipitor] 40 mg PO DAILY 04/15/16 [History] Clopidogrel [Plavix] 75 mg PO DAILY 05/02/16 [History] Bumetanide [Bumex] 1 mg PO DAILY 12/08/17 [History] DULoxetine [Cymbalta] 60 mg PO DAILY 12/08/17 [History] Gabapentin [Neurontin] 300 mg PO TID 12/08/17 [History] guaiFENesin [Mucinex] 1,200 mg PO ASDIRECTED PRN 12/08/17 [History] Fluticasone Propionate [Flonase] 2 spray NS DAILY 07/14/18 [History] Ibuprofen 200 mg PO Q6H PRN 07/14/18 [History] Metaxalone [Skelaxin] 800 mg PO TID 07/14/18 [History] Roflumilast [Daliresp] 500 mcg PO DAILY 07/14/18 [History] oxyCODONE HCl/Acetaminophen [Percocet 10-325 mg Tablet] 10 - 325 mg PO Q6H PRN 07/14/18 [History] Metoprolol Succinate 100 mg PO DAILY 07/23/18 [History] Tiotropium [place] [Spiriva Respimat] 2 puff INH DAILY 07/23/18 [History] traZODone HCl [Trazodone HCl] 50 mg PO BEDTIME PRN 07/23/18 [History] Past Medical History HEENT History: Reports: Impaired Vision Other HEENT History: wears eyeglasses Cardiovascular History: Reports: Heart Failure, High Cholesterol, Hypertension, [place], Stents Respiratory History: Reports: COPD, Sleep Apnea Other Respiratory History: wears C-PAP while sleeping. Gastrointestinal History: Reports: Chronic Diarrhea Genitourinary History: Reports: Urinary Incontinence Musculoskeletal History: Reports: Back Pain, Chronic, Osteoarthritis, Other ( See Below) Other Musculoskeletal History: DDD, bulging L5 Neurological History: Reports: Other (See Below) Other Neuro History: restless legs Psychiatric History: Reports: Anxiety, Depression Endocrine/Metabolic History: Reports: Diabetes, Type II - Infectious Disease History Infectious Disease History: Reports: Chicken Pox, Measles - Past Surgical History Female Surgical History: Reports: Tubal Ligation Social & Family History - Family History Family Medical History: Noncontributory Cardiac: Reports: Aneurysm, [place] - Tobacco Use Smoking Status *Q: Current Every Day Smoker Years of Tobacco use: 45 Packs/Tins Daily: 0.1 - Caffeine Use Caffeine Use: Reports: Soda, Tea Caffeine Use Comment: Daily - Recreational Drug Use Recreational Drug Use: No - Living Situation & Occupation Living situation: Reports: Single, Alone Occupation: Employed Review of Systems - Review of Systems Review Of Systems: See Below Constitutional: Denies: Chills, Fever Mouth/Throat: Reports: No Symptoms Respiratory: Denies: Shortness of Breath, Pleuritic Chest Pain Cardiovascular: Denies: Chest Pain GI/Abdominal: Denies: Abdominal Pain, Nausea, Vomiting Musculoskeletal: Reports: Joint Pain (R post lat knee). Denies: Leg Pain Skin: Reports: No Symptoms Neurological: Denies: Numbness, Tingling ED EXAM, GENERAL - Physical Exam Exam: See Below General Appearance: Alert, Mild Distress Head: Atraumatic Neck: Supple Respiratory/Chest: No Respiratory Distress Extremities: Other (tenderness R post knee, knee otherwise nont). No: Joint Swelling Neurological: Other (tender R post lateral knee, knee otherwise nontender, patella in normal position. good flexion, pain with extension, joint stable, leg otherwise nontender) Course - Vital Signs Last Recorded V/S: Last Vital Signs Temp 96.9 F 07/23/18 11:32 Pulse 80 07/23/18 11:32 Resp 20 07/23/18 11:32 BP 94/67 07/23/18 11:32 Pulse Ox 96 07/23/18 11:32 - Orders/Labs/Meds Orders: Active Orders 24 hr Category Date Time Status Knee Min 4V Rt [CR] Stat Exams 07/23/18 11:54 Taken Durable Medical Equipment for Discharge [DME for Oth 07/23/18 12:23 Ordered Discharge] [COMM] Stat Meds: Medications Discontinued Medications Generic Name Dose Route Start Last Admin Trade Name Emely PRN Reason Stop Dose Admin Ketorolac Tromethamine 30 mg 07/23/18 11:53 07/23/18 11:59 Toradol IM 07/23/18 11:54 30 mg ONETIME ONE Administration Departure - Departure Time of Disposition: 12:24 Disposition: Home, Self-Care 01 Condition: Fair Clinical Impression: Right knee sprain Qualifiers: Encounter type: initial encounter Involved ligament of knee: posterior cruciate ligament Qualified Code(s): S83.521A - Sprain of posterior cruciate ligament of right knee, initial encounter - Discharge Information Instructions: Knee Sprain, Adult, [id number] Referrals: Marlo Aceves MD [Primary Care Provider] - Forms: ED Department Discharge Additional Instructions: arnol wrap R knee, use crutches until pain resolving. Alternate ice and heat today and tomorrow, thereafter as needed, tylenol for mild to moderate discomfort or oxycodone as previously prescribed for more severe pain as needed. Follow up with your provider or one of our local Orthopedists if not getting much better within 3 to 5 days as expected. - My Orders Last 24 Hours: My Active Orders 07/23/18 11:54 Knee Min 4V Rt [CR] Stat 07/23/18 12:23 Durable Medical Equipment for Discharge [DME for Discharge] [COMM] Stat - Assessment/Plan Last 24 Hours: My Active Orders 07/23/18 11:54 Knee Min 4V Rt [CR] Stat 07/23/18 12:23 Durable Medical Equipment for Discharge [DME for Discharge] [COMM] Stat
--- NOTE | 2018-07-25 07:13 | CR ---
Right knee: Four views of the right knee were obtained. Comparison: No prior knee exam. Minimal joint effusion is noted. Osteophytes are noted off the medial joint. Small osteophyte is noted off the patella. Sclerotic area is noted within the proximal tibia which is felt to be benign and incidental. No acute bony abnormality is otherwise seen. Impression: 1. Small joint effusion. Mild degenerative change. 2. No acute bony abnormality is identified. Diagnostic code #2
== END 2018-07-23 12:49 | disposition home or self-care (01) ==
LOC: JD.ED 11:18
DX: S83.521A Sprain of posterior cruciate ligament of right knee, initial encounter (principal); I11.0 Hypertensive heart disease with heart failure; I50.9 Heart failure, unspecified; E11.9 Type 2 diabetes mellitus without complications; M54.5 Low back pain; G89.29 Other chronic pain; Z79.82 Long term (current) use of aspirin; Z79.84 Long term (current) use of oral hypoglycemic drugs; Z79.899 Other long term (current) drug therapy; Z88.8 Allergy status to other drugs, medicaments and biological substances; F17.210 Nicotine dependence, cigarettes, uncomplicated; X50.9XXA Other and unspecified overexertion or strenuous movements or postures, initial encounter
CPT/HCPCS: 73564; 96372; 99283; J1885

== ENCOUNTER 2021-11-06 10:10 | Emergency (ER) | payer MEDICARE, BC ==
[2021-11-06 10:26] VITALS: BP 143/93; PULSE 119
[2021-11-06] MEDS ORDERED: Sodium Chloride 0.9% 10 ML Syringe FLUSH PRN (10:27)
[2021-11-06] MEDS ORDERED: Albuterol/Ipratropium 3.0-0.5 MG/3 ML Neb Soln NEB ONE (10:32)
--- NOTE | 2021-11-06 11:18 | EDM.PDOC ---
ED HPI GENERAL MEDICAL PROBLEM - General Chief Complaint: Respiratory Problem Stated Complaint: [facility] Time Seen by Provider: 11/06/21 11:04 Source of Information: Reports: Patient, RN Notes Reviewed History Limitations: Reports: No Limitations - History of Present Illness INITIAL COMMENTS - FREE TEXT/NARRATIVE: Patient is a 66-year-old female who presents to the ER by [facility] for her acute shortness of breath. She does have a history of COPD. States she has not been feeling well for a couple weeks. States that she still is on a prednisone taper from her regular doctor, Dr. Aceves. Notes that she did have COVID at the beginning of September 2021 and she is not really been right since. She states that she enjoyed [place] celebration with her family, and she states that her mother, and also other family members are sick at home. She is thinks that she might be the sickest. She notes that around 2 AM this morning, she became acutely short of breath, much worse than her normal shortness of breath. She does wear oxygen through her CPAP at night but does not wear it throughout the day for the most part. O2 sats were low when the ambulance got to her, and they placed her on nonrebreather mask, and gave her a nebulizer en route to the ER. Patient is currently on 4 L via nasal cannula and getting sats around the mid to upper 80s. Patient appears visibly breathless and also did receive another neb while being in the ER. She is not complaining of any fevers or chills, no major productive cough, she is having shortness of breath, no nausea or vomiting, patient states that she has some mild diarrhea but this is intermittent for her nothing worse than her normal. - Related Data Allergies Allergy/AdvReac Type Severity Reaction Status Date / Time meperidine HCl [From Demerol] Allergy Rash Verified 11/06/21 10:25 tetracycline [Tetracycline] Allergy Itching Verified 11/06/21 10:25 varenicline [From Chantix] Allergy Other Verified 11/06/21 10:25 Home Meds: Home Meds Aspirin [[place] Aspirin] 81 mg PO DAILY 02/25/16 [History] Budesonide/Formoterol [Symbicort 160-4.5 MCG] 2 puff INH BID 02/25/16 [History] metFORMIN [Glucophage] 500 mg PO BID 02/25/16 [History] Lisinopril 40 mg PO DAILY 04/15/16 [History] atorvaSTATin [Lipitor] 40 mg PO DAILY 04/15/16 [History] Clopidogrel [Plavix] 75 mg PO DAILY 05/02/16 [History] Bumetanide [Bumex] 1 mg PO DAILY 12/08/17 [History] DULoxetine [Cymbalta] 60 mg PO DAILY 12/08/17 [History] Gabapentin [Neurontin] 300 mg PO TID 12/08/17 [History] guaiFENesin [Mucinex] 1,200 mg PO ASDIRECTED PRN 12/08/17 [History] Fluticasone Propionate [Flonase] 2 spray NS DAILY 07/14/18 [History] Ibuprofen 200 mg PO Q6H PRN 07/14/18 [History] Metaxalone [Skelaxin] 800 mg PO TID 07/14/18 [History] Roflumilast [Daliresp] 500 mcg PO DAILY 07/14/18 [History] oxyCODONE HCl/Acetaminophen [Percocet 10-325 mg Tablet] 10 - 325 mg PO Q6H PRN 07/14/18 [History] Metoprolol Succinate 100 mg PO DAILY 07/23/18 [History] Tiotropium [place] [Spiriva Respimat] 2 puff INH DAILY 07/23/18 [History] traZODone HCl [Trazodone HCl] 50 mg PO BEDTIME PRN 07/23/18 [History] Albuterol Sulfate [Albuterol Sulfate Hfa] 8.5 gm IH ASDIRECTED PRN 04/28/19 [History] Past Medical History HEENT History: Reports: Impaired Vision Other HEENT History: wears eyeglasses Cardiovascular History: Reports: Heart Failure, High Cholesterol, Hypertension, [place], Stents Respiratory History: Reports: COPD, Sleep Apnea Other Respiratory History: wears C-PAP while sleeping. Gastrointestinal History: Reports: Chronic Diarrhea Genitourinary History: Reports: Urinary Incontinence Musculoskeletal History: Reports: Back Pain, Chronic, Osteoarthritis, Other (See Below) Other Musculoskeletal History: DDD, bulging L5 Neurological History: Reports: Other (See Below) Other Neuro History: restless legs Psychiatric History: Reports: Anxiety, Depression Endocrine/Metabolic History: Reports: Diabetes, Type II - Infectious Disease History Infectious Disease History: Reports: Chicken Pox, Measles, Novel Coronavirus (September 2021) - Past Surgical History GI Surgical History: Reports: Cholecystectomy Female Surgical History: Reports: Tubal Ligation Neurological Surgical History: Reports: C-Spine Other Musculoskeletal Surgeries/Procedures:: cervical spine fusion. Social & Family History - Family History Family Medical History: No Pertinent Family History Cardiac: Reports: Aneurysm, [place] - Tobacco Use Tobacco Use Status *Q: Current Some Day Tobacco User Years of Tobacco use: 50 Packs/Tins Daily: 0.2 Used Tobacco, but Quit: No Tobacco Use Comment: working on quitting smoking - down to 1-2 cig/week - Caffeine Use Caffeine Use: Reports: Soda Caffeine Use Comment: Daily - Recreational Drug Use Recreational Drug Use: No - Living Situation & Occupation Living situation: Reports: Single, Alone Occupation: Employed ED ROS GENERAL - Review of Systems Review Of Systems: Comprehensive ROS is negative, except as noted in HPI. ED EXAM, GENERAL - Physical Exam Exam: See Below Exam Limited By: No Limitations General Appearance: Alert, WD/WN, No Apparent Distress Respiratory/Chest: Lungs Clear, No Accessory Muscle Use, Chest Non-Tender, Respiratory Distress (mild, patient is breathless while talking-cannot make full sentences easy), Decreased Breath Sounds (bilaterally) Cardiovascular: Normal Peripheral Pulses, Regular Rate, Rhythm, No Edema Extremities: Normal Inspection, Normal Capillary Refill Neurological: Alert, Oriented, Normal Cognition, No Motor/Sensory Deficits Psychiatric: Normal Affect, Normal Mood Skin Exam: Warm, Dry, Intact, Normal Color, No Rash Course - Vital Signs Last Recorded V/S: Last Vital Signs Temp 97.3 F 11/06/21 10:22 Pulse 119 H 11/06/21 10:22 Resp 28 H 11/06/21 10:22 BP 143/93 H 11/06/21 10:22 Pulse Ox 89 L 11/06/21 10:33 - Orders/Labs/Meds Orders: Active Orders 24 hr Category Date Time Status Peripheral IV Care [RC] . DIRECTED Care 11/06/21 10:28 Active RT Aerosol Therapy [RC] ASDIRECTED Care 11/06/21 10:33 Active RT BiPAP/CPAP [RC] ASDIRECTED Care 11/06/21 12:01 Active BLOOD CULTURE [MREF] Stat Lab 11/06/21 10:58 Received BLOOD CULTURE [MREF] Stat Lab 11/06/21 11:08 Received Potassium Chloride [KCl in Water 10 MEQ/100 ML] 10 meq Med 11/06/21 12:30 Active Premix Bag 1 bag IV Q1H Sodium Chloride 0.9% [Normal Saline] 1,000 ml Med 11/06/21 13:00 Active IV ASDIRECTED Sodium Chloride 0.9% [Saline Flush] Med 11/06/21 10:27 Active 10 ml FLUSH ASDIRECTED PRN Blood Culture x2 Reflex Set [OM.PC] Stat Oth 11/06/21 10:28 Ordered Peripheral IV Insertion Adult [OM.PC] Stat Oth 11/06/21 10:28 Ordered Medication Orders Potassium Chloride 10 meq/ (Premix) 100 mls @ 100 mls/hr IV Q1H FAISAL Stop: 11/06/21 16:29 Last Admin: 11/06/21 12:45 Dose: 100 mls/hr Documented by: TOM Sodium Chloride (Normal Saline) 1,000 mls @ 50 mls/hr IV ASDIRECTED FAISAL Last Admin: 11/06/21 13:19 Dose: 50 mls/hr Documented by: TOM Sodium Chloride (Sodium Chloride 0.9% 10 Ml Syringe) 10 ml FLUSH ASDIRECTED PRN PRN Reason: Keep Vein Open Last Admin: 11/06/21 11:13 Dose: 10 ml Documented by: TOM Labs: Laboratory Tests 11/06/21 11/06/21 11/06/21 Range/Units 10:27 10:28 10:28 WBC (3.98-10.04) K/mm3 RBC (3.98-5.22) M/mm3 Hgb (11.2-15.7) gm/dl Hct (34.1-44.9) % MCV (79.4-94.8) fl MCH (25.6-32.2) pg MCHC (32.2-35.5) g/dl RDW Std Deviation (36.4-46.3) fL Plt Count (182-369) K/mm3 MPV (9.4-12.3) fl Neutrophils % (Manual) (40-60) % Band Neutrophils % (0-10) % Lymphocytes % (Manual) (20-40) % Atypical Lymphs % % Monocytes % (Manual) (2-10) % Eosinophils % (Manual) (0.7-5.8) % Basophils % (Manual) (0.1-1.2) Platelet Estimate RBC Morph Comment D-Dimer, Quantitative 0.43 (0.19-0.50) mg/L Puncture Site ABG pH (7.35-7.45) ABG pCO2 (35.0-45.0) mmHg ABG pO2 (80.0-100.0) mmHg ABG HCO3 (22.0-26.0) meq/L ABG O2 Saturation (96.0-97.0) % ABG Base Excess (-2-2.0) Philip Test O2 Delivery Device Oxygen Flow Rate PEEP cmH20 Sodium (136-145) mEq/L Potassium (3.5-5.1) mEq/L Chloride (98-107) mEq/L Carbon Dioxide (21-32) mEq/L Anion Gap (5-15) BUN (7-18) mg/dL Creatinine (0.55-1.02) mg/dL Est Cr Clr Drug Dosing mL/min Estimated GFR (MDRD) (>60) mL/min BUN/Creatinine Ratio (14-18) Glucose (70-99) mg/dL Lactic Acid 1.6 (0.4-2.0) mmol/L Calcium (8.5-10.1) mg/dL Total Bilirubin (0.2-1.0) mg/dL AST (15-37) U/L ALT (14-59) U/L Alkaline Phosphatase (46-116) U/L Troponin I (0.00-0.056) ng/mL C-Reactive Protein (<1.0) mg/dL NT-Pro-B Natriuret Pep (0-125) pg/mL Total Protein (6.4-8.2) g/dl Albumin (3.4-5.0) g/dl Globulin gm/dL Albumin/Globulin Ratio (1-2) Influenza Type A RNA Positive H (NEGATIVE) Influenza Type B RNA Negative (NEGATIVE) SARS-CoV-2 RNA (RACHEL) Negative (NEGATIVE) 11/06/21 11/06/21 11/06/21 Range/Units 10:32 10:58 10:58 WBC 5.19 (3.98-10.04) K/mm3 RBC 4.21 (3.98-5.22) M/mm3 Hgb 12.3 D (11.2-15.7) gm/dl Hct 40.4 (34.1-44.9) % MCV 96.0 H D (79.4-94.8) fl MCH 29.2 (25.6-32.2) pg MCHC 30.4 L (32.2-35.5) g/dl RDW Std Deviation 49.7 H (36.4-46.3) fL Plt Count 230 D (182-369) K/mm3 MPV 8.8 L (9.4-12.3) fl Neutrophils % (Manual) 73 H (40-60) % Band Neutrophils % 0 (0-10) % Lymphocytes % (Manual) 20 (20-40) % Atypical Lymphs % 0 % Monocytes % (Manual) 6 (2-10) % Eosinophils % (Manual) 1 (0.7-5.8) % Basophils % (Manual) 0 L (0.1-1.2) Platelet Estimate Adequate RBC Morph Comment Normal D-Dimer, Quantitative (0.19-0.50) mg/L Puncture Site Lt radial ABG pH 7.36 (7.35-7.45) ABG pCO2 52.3 H (35.0-45.0) mmHg ABG pO2 50.0 L (80.0-100.0) mmHg ABG HCO3 28.9 H (22.0-26.0) meq/L ABG O2 Saturation 85.6 L (96.0-97.0) % ABG Base Excess 3.1 H (-2-2.0) Philip Test Positive O2 Delivery Device Nasal cannula Oxygen Flow Rate 3.0 PEEP cmH20 Sodium 144 (136-145) mEq/L Potassium 2.8 L (3.5-5.1) mEq/L Chloride 100 (98-107) mEq/L Carbon Dioxide 33 H (21-32) mEq/L Anion Gap 13.8 (5-15) BUN 18 (7-18) mg/dL Creatinine 1.0 (0.55-1.02) mg/dL Est Cr Clr Drug Dosing 45.78 mL/min Estimated GFR (MDRD) 55 (>60) mL/min BUN/Creatinine Ratio 18.0 (14-18) Glucose 168 H (70-99) mg/dL Lactic Acid (0.4-2.0) mmol/L Calcium 8.8 (8.5-10.1) mg/dL Total Bilirubin 0.2 (0.2-1.0) mg/dL AST 19 (15-37) U/L ALT 30 (14-59) U/L Alkaline Phosphatase 66 (46-116) U/L Troponin I < 0.017 (0.00-0.056) ng/mL C-Reactive Protein 1.1 H* (<1.0) mg/dL NT-Pro-B Natriuret Pep (0-125) pg/mL Total Protein 6.8 (6.4-8.2) g/dl Albumin 3.3 L (3.4-5.0) g/dl Globulin 3.5 gm/dL Albumin/Globulin Ratio 0.9 L (1-2) Influenza Type A RNA (NEGATIVE) Influenza Type B RNA (NEGATIVE) SARS-CoV-2 RNA (RACHEL) (NEGATIVE) 11/06/21 11/06/21 Range/Units 10:58 12:27 WBC (3.98-10.04) K/mm3 RBC (3.98-5.22) M/mm3 Hgb (11.2-15.7) gm/dl Hct (34.1-44.9) % MCV (79.4-94.8) fl MCH (25.6-32.2) pg MCHC (32.2-35.5) g/dl RDW Std Deviation (36.4-46.3) fL Plt Count (182-369) K/mm3 MPV (9.4-12.3) fl Neutrophils % (Manual) (40-60) % Band Neutrophils % (0-10) % Lymphocytes % (Manual) (20-40) % Atypical Lymphs % % Monocytes % (Manual) (2-10) % Eosinophils % (Manual) (0.7-5.8) % Basophils % (Manual) (0.1-1.2) Platelet Estimate RBC Morph Comment D-Dimer, Quantitative (0.19-0.50) mg/L Puncture Site Lt radial ABG pH 7.36 (7.35-7.45) ABG pCO2 55.2 H (35.0-45.0) mmHg ABG pO2 76.0 L (80.0-100.0) mmHg ABG HCO3 30.2 H (22.0-26.0) meq/L ABG O2 Saturation 95.7 L (96.0-97.0) % ABG Base Excess 4.1 H (-2-2.0) Philip Test Positive O2 Delivery Device Cpap Oxygen Flow Rate 6.0 PEEP 10.0 cmH20 Sodium (136-145) mEq/L Potassium (3.5-5.1) mEq/L Chloride (98-107) mEq/L Carbon Dioxide (21-32) mEq/L Anion Gap (5-15) BUN (7-18) mg/dL Creatinine (0.55-1.02) mg/dL Est Cr Clr Drug Dosing mL/min Estimated GFR (MDRD) (>60) mL/min BUN/Creatinine Ratio (14-18) Glucose (70-99) mg/dL Lactic Acid (0.4-2.0) mmol/L Calcium (8.5-10.1) mg/dL Total Bilirubin (0.2-1.0) mg/dL AST (15-37) U/L ALT (14-59) U/L Alkaline Phosphatase (46-116) U/L Troponin I (0.00-0.056) ng/mL C-Reactive Protein (<1.0) mg/dL NT-Pro-B Natriuret Pep 194 H (0-125) pg/mL Total Protein (6.4-8.2) g/dl Albumin (3.4-5.0) g/dl Globulin gm/dL Albumin/Globulin Ratio (1-2) Influenza Type A RNA (NEGATIVE) Influenza Type B RNA (NEGATIVE) SARS-CoV-2 RNA (RACHEL) (NEGATIVE) Meds: Medications Generic Name Dose Route Start Last Admin Trade Name Freq PRN Reason Stop Dose Admin Potassium Chloride 10 meq/ 100 mls @ 100 mls/hr 11/06/21 12:30 11/06/21 12:45 Premix IV 11/06/21 16:29 100 mls/hr Q1H FAISAL Administration Sodium Chloride 1,000 mls @ 50 mls/hr 11/06/21 13:00 11/06/21 13:19 Normal Saline IV 50 mls/hr ASDIRECTED FAISAL Administration Sodium Chloride 10 ml 11/06/21 10:27 11/06/21 11:13 Sodium Chloride 0.9% 10 Ml Syringe FLUSH 10 ml ASDIRECTED PRN Administration Keep Vein Open Discontinued Medications Generic Name Dose Route Start Last Admin Trade Name Emely PRN Reason Stop Dose Admin Albuterol/Ipratropium 3 ml 11/06/21 10:32 11/06/21 10:43 Albuterol/Ipratropium 3.0-0.5 Mg/3 Ml Neb Soln NEB 11/06/21 10:33 3 ml ONETIME ONE Administration Oseltamivir Phosphate 75 mg 11/06/21 12:26 11/06/21 12:45 Oseltamivir 75 Mg Cap PO 11/06/21 12:27 75 mg ONETIME ONE Administration Potassium Chloride 40 meq 11/06/21 12:17 11/06/21 12:45 Potassium Chloride 20 Meq Tab.Er PO 11/06/21 12:18 40 meq ONETIME ONE Administration - Re-Assessments/Exams Free Text/Narrative Re-Assessment/Exam: 11/06/21 11:17 Patient presents to the ER for evaluation of her acute shortness of breath. Labs were ordered at the time of triage, COVID/flu swab was also taken. Patient is stable at this time will await further laboratory evaluation for ongoing investigation. 11/06/21 12:39 Patient is influenza A positive. CBC demonstrates no focal abnormalities. CMP is impressive for a low potassium at 2.8, mildly elevated CRP but negative troponin and fairly unremarkable portions of the metabolic panel. Blood gas did demonstrate that the patient might have a little bit of CO2 retention. RT was called due to the patient being titrated back up to 5 L via nasal cannula and she was placed on CPAP at a pressure of 10 with 6 L bled in and this resulted in O2 sats around 94-95. Patient states she is feeling much better with the CPAP. I did call and talk with [facility] in [place] and they do have a bed, and Dr. Turner does graciously accept. They are asking us to wait about 1 hour so they can clean the bed for the patient. Due to the patient's low potassium I have ordered 40 mEq oral and 40 mEq IV for ongoing management. Departure - Departure Time of Disposition: 13:49 Disposition: DC/Tfer to Acute Hospital 02 Condition: Good Clinical Impression: Hypoxia, Influenza A, COPD exacerbation - Discharge Information Referrals: PCP,None [Primary Care Provider] - Forms: ED Department Discharge Sepsis Event Note (ED) - Evaluation Sepsis Screening Result: Possible Sepsis Risk - Focused Exam Vital Signs: Vital Signs Temp Pulse Resp BP Pulse Ox Pulse Ox 11/06/21 10:33 89 L 11/06/21 10:22 97.3 F 119 H 28 H 143/93 H 89 L - My Orders Last 24 Hours: My Active Orders 11/06/21 10:27 Sodium Chloride 0.9% [Saline Flush] 10 ml FLUSH ASDIRECTED PRN 11/06/21 10:28 Peripheral IV Care [RC] . DIRECTED Blood Culture x2 Reflex Set [OM.PC] Stat Peripheral IV Insertion Adult [OM.PC] Stat 11/06/21 10:33 RT Aerosol Therapy [RC] ASDIRECTED 11/06/21 10:58 BLOOD CULTURE [MREF] Stat 11/06/21 11:08 BLOOD CULTURE [MREF] Stat 11/06/21 12:01 RT BiPAP/CPAP [RC] ASDIRECTED 11/06/21 12:30 Potassium Chloride [KCl in Water 10 MEQ/100 ML] 10 meq Premix Bag 1 bag IV Q1H 11/06/21 13:00 Sodium Chloride 0.9% [Normal Saline] 1,000 ml IV ASDIRECTED - Assessment/Plan Last 24 Hours: My Active Orders 11/06/21 10:27 Sodium Chloride 0.9% [Saline Flush] 10 ml FLUSH ASDIRECTED PRN 11/06/21 10:28 Peripheral IV Care [RC] . DIRECTED Blood Culture x2 Reflex Set [OM.PC] Stat Peripheral IV Insertion Adult [OM.PC] Stat 11/06/21 10:33 RT Aerosol Therapy [RC] ASDIRECTED 11/06/21 10:58 BLOOD CULTURE [MREF] Stat 11/06/21 11:08 BLOOD CULTURE [MREF] Stat 11/06/21 12:01 RT BiPAP/CPAP [RC] ASDIRECTED 11/06/21 12:30 Potassium Chloride [KCl in Water 10 MEQ/100 ML] 10 meq Premix Bag 1 bag IV Q1H 11/06/21 13:00 Sodium Chloride 0.9% [Normal Saline] 1,000 ml IV ASDIRECTED
--- NOTE | 2021-11-06 11:28 | CR ---
Chest: Frontal view of the chest was obtained. Comparison: Prior chest x-ray of 12/08/[address] of 03/27/21. Heart size and mediastinum are within normal limits. Lungs are clear with no acute parenchymal change. Prior cervical spine surgery is noted. Scattered degenerative spurring is noted within the spine. Impression: 1. Nothing acute is seen on frontal chest x-ray. Diagnostic code #2
[2021-11-06 11:31] LABS: CORONAVIRUS COVID-19 NAA NEGATIVE (NEGATIVE)
[2021-11-06] MEDS ORDERED: Potassium Chloride 20 MEQ Tab.ER PO ONE (12:17)
[2021-11-06] MEDS ORDERED: Oseltamivir 75 MG Cap PO ONE (12:26)
[2021-11-06] MEDS ORDERED: Potassium Chloride 10 MEQ in Premix Bag 1 BAG IV SCH (12:30)
[2021-11-06] MEDS ORDERED: Sodium Chloride 0.9% 1,000 ML IV SCH (13:00)
--- NOTE | 2021-11-12 07:50 | EDM.PDOC ---
ED HPI GENERAL MEDICAL PROBLEM - General Chief Complaint: Respiratory Problem Stated Complaint: [facility] Time Seen by Provider: 11/06/21 11:04 Source of Information: Reports: Patient, RN Notes Reviewed History Limitations: Reports: No Limitations - History of Present Illness INITIAL COMMENTS - FREE TEXT/NARRATIVE: Patient is a 66-year-old female who presents to the ER by [facility] for her acute shortness of breath. She does have a history of COPD. States she has not been feeling well for a couple weeks. States that she still is on a prednisone taper from her regular doctor, Dr. Aceves. Notes that she did have COVID at the beginning of September 2021 and she is not really been right since. She states that she enjoyed [place] celebration with her family, and she states that her mother, and also other family members are sick at home. She is thinks that she might be the sickest. She notes that around 2 AM this morning, she became acutely short of breath, much worse than her normal shortness of breath. She does wear oxygen through her CPAP at night but does not wear it throughout the day for the most part. O2 sats were low when the ambulance got to her, and they placed her on nonrebreather mask, and gave her a nebulizer en route to the ER. Patient is currently on 4 L via nasal cannula and getting sats around the mid to upper 80s. Patient appears visibly breathless and also did receive another neb while being in the ER. She is not complaining of any fevers or chills, no major productive cough, she is having shortness of breath, no nausea or vomiting, patient states that she has some mild diarrhea but this is intermittent for her nothing worse than her normal. Onset: Today, Sudden Onset Time: 02:00 Duration: Day(s):, Getting Worse Location: Reports: Chest (dyspnea and cough. ) - Related Data Allergies Allergy/AdvReac Type Severity Reaction Status Date / Time meperidine HCl [From Demerol] Allergy Rash Verified 11/06/21 10:25 tetracycline [Tetracycline] Allergy Itching Verified 11/06/21 10:25 varenicline [From Chantix] Allergy Other Verified 11/06/21 10:25 Home Meds: Home Meds Aspirin [[place] Aspirin] 81 mg PO DAILY 02/25/16 [History] Budesonide/Formoterol [Symbicort 160-4.5 MCG] 2 puff INH BID 02/25/16 [History] metFORMIN [Glucophage] 500 mg PO BID 02/25/16 [History] Lisinopril 40 mg PO DAILY 04/15/16 [History] atorvaSTATin [Lipitor] 40 mg PO DAILY 04/15/16 [History] Clopidogrel [Plavix] 75 mg PO DAILY 05/02/16 [History] Bumetanide [Bumex] 1 mg PO DAILY 12/08/17 [History] DULoxetine [Cymbalta] 60 mg PO DAILY 12/08/17 [History] Gabapentin [Neurontin] 300 mg PO TID 12/08/17 [History] guaiFENesin [Mucinex] 1,200 mg PO ASDIRECTED PRN 12/08/17 [History] Fluticasone Propionate [Flonase] 2 spray NS DAILY 07/14/18 [History] Ibuprofen 200 mg PO Q6H PRN 07/14/18 [History] Metaxalone [Skelaxin] 800 mg PO TID 07/14/18 [History] Roflumilast [Daliresp] 500 mcg PO DAILY 07/14/18 [History] oxyCODONE HCl/Acetaminophen [Percocet 10-325 mg Tablet] 10 - 325 mg PO Q6H PRN 07/14/18 [History] Metoprolol Succinate 100 mg PO DAILY 07/23/18 [History] Tiotropium [place] [Spiriva Respimat] 2 puff INH DAILY 07/23/18 [History] traZODone HCl [Trazodone HCl] 50 mg PO BEDTIME PRN 07/23/18 [History] Albuterol Sulfate [Albuterol Sulfate Hfa] 8.5 gm IH ASDIRECTED PRN 04/28/19 [History] Past Medical History HEENT History: Reports: Impaired Vision Other HEENT History: wears eyeglasses Cardiovascular History: Reports: Heart Failure, High Cholesterol, Hypertension, [place], Stents Respiratory History: Reports: COPD, Sleep Apnea Other Respiratory History: wears C-PAP while sleeping. Gastrointestinal History: Reports: Chronic Diarrhea Genitourinary History: Reports: Urinary Incontinence Musculoskeletal History: Reports: Back Pain, Chronic, Osteoarthritis, Other (See Below) Other Musculoskeletal History: DDD, bulging L5 Neurological History: Reports: Other (See Below) Other Neuro History: restless legs Psychiatric History: Reports: Anxiety, Depression Endocrine/Metabolic History: Reports: Diabetes, Type II - Infectious Disease History Infectious Disease History: Reports: Chicken Pox, Measles, Novel Coronavirus (September 2021) - Past Surgical History GI Surgical History: Reports: Cholecystectomy Female Surgical History: Reports: Tubal Ligation Neurological Surgical History: Reports: C-Spine Other Musculoskeletal Surgeries/Procedures:: cervical spine fusion. Social & Family History - Family History Family Medical History: No Pertinent Family History Cardiac: Reports: Aneurysm, [place] - Tobacco Use Tobacco Use Status *Q: Current Some Day Tobacco User Years of Tobacco use: 50 Packs/Tins Daily: 0.2 Used Tobacco, but Quit: No Tobacco Use Comment: working on quitting smoking - down to 1-2 cig/week - Caffeine Use Caffeine Use: Reports: Soda Caffeine Use Comment: Daily - Recreational Drug Use Recreational Drug Use: No - Living Situation & Occupation Living situation: Reports: Single, Alone Occupation: Employed ED EXAM, GENERAL - Physical Exam Free Text/Narrative:: Patient is a 66-year-old female who presents to the ER by [facility] for her acute shortness of breath. She does have a history of COPD. States she has not been feeling well for a couple weeks. States that she still is on a prednisone taper from her regular doctor, Dr. Aceves. Notes that she did have COVID at the beginning of September 2021 and she is not really been right since. She states that she enjoyed [place] celebration with her family, and she states that her mother, and also other family members are sick at home. She is thinks that she might be the sickest. She notes that around 2 AM this morning, she became acutely short of breath, much worse than her normal shortness of breath. She does wear oxygen through her CPAP at night but does not wear it throughout the day for the most part. O2 sats were low when the ambulance got to her, and they placed her on nonrebreather mask, and gave her a nebulizer en route to the ER. Patient is currently on 4 L via nasal cannula and getting sats around the mid to upper 80s. Patient appears visibly breathless and also did receive another neb while being in the ER. She is not complaining of any fevers or chills, no major productive cough, she is having shortness of breath, no nausea or vomiting, patient states that she has some mild diarrhea but this is intermittent for her nothing worse than her normal. Exam Limited By: No Limitations General Appearance: Alert, WD/WN, No Apparent Distress Respiratory/Chest: Lungs Clear, No Accessory Muscle Use, Chest Non-Tender, Respiratory Distress (mild, patient is breathless while talking-cannot make full sentences easy), Decreased Breath Sounds (bilaterally) Cardiovascular: Normal Peripheral Pulses, Regular Rate, Rhythm, No Edema Extremities: Normal Inspection, Normal Capillary Refill Neurological: Alert, Oriented, Normal Cognition, No Motor/Sensory Deficits Psychiatric: Normal Affect, Normal Mood Skin Exam: Warm, Dry, Intact, Normal Color, No Rash #1 Interpretation EKG Date: 11/06/21 Time: 10:45 Rhythm: Other (sinus tachycardia) Rate (Beats/Min): 110 [place]: Normal P-Wave: Enlarged (Lt atrial hypertrophy. Pwave inverted in leads V1 and V2.) QRS: Other (Early R wave transition --considerr RVH vsseptal hypertrophy.) ST-T: Other (diffuse repolarization abnormality.) QT: Prolonged (mildly prolonged) EKG Interpretation Comments: Abnormal ECG. Course - Vital Signs Last Recorded V/S: Last Vital Signs Temp 36.3 C 11/06/21 10:22 Pulse 119 H 11/06/21 10:22 Resp 28 H 11/06/21 10:22 BP 143/93 H 11/06/21 10:22 Pulse Ox 89 L 11/06/21 10:33 - Orders/Labs/Meds Labs: Laboratory Tests 11/06/21 11/06/21 11/06/21 Range/Units 10:27 10:28 10:28 WBC (3.98-10.04) K/mm3 RBC (3.98-5.22) M/mm3 Hgb (11.2-15.7) gm/dl Hct (34.1-44.9) % MCV (79.4-94.8) fl MCH (25.6-32.2) pg MCHC (32.2-35.5) g/dl RDW Std Deviation (36.4-46.3) fL Plt Count (182-369) K/mm3 MPV (9.4-12.3) fl Neutrophils % (Manual) (40-60) % Band Neutrophils % (0-10) % Lymphocytes % (Manual) (20-40) % Atypical Lymphs % % Monocytes % (Manual) (2-10) % Eosinophils % (Manual) (0.7-5.8) % Basophils % (Manual) (0.1-1.2) Platelet Estimate RBC Morph Comment D-Dimer, Quantitative 0.43 (0.19-0.50) mg/L Puncture Site ABG pH (7.35-7.45) ABG pCO2 (35.0-45.0) mmHg ABG pO2 (80.0-100.0) mmHg ABG HCO3 (22.0-26.0) meq/L ABG O2 Saturation (96.0-97.0) % ABG Base Excess (-2-2.0) Philip Test O2 Delivery Device Oxygen Flow Rate PEEP cmH20 Sodium (136-145) mEq/L Potassium (3.5-5.1) mEq/L Chloride (98-107) mEq/L Carbon Dioxide (21-32) mEq/L Anion Gap (5-15) BUN (7-18) mg/dL Creatinine (0.55-1.02) mg/dL Est Cr Clr Drug Dosing mL/min Estimated GFR (MDRD) (>60) mL/min BUN/Creatinine Ratio (14-18) Glucose (70-99) mg/dL Lactic Acid 1.6 (0.4-2.0) mmol/L Calcium (8.5-10.1) mg/dL Total Bilirubin (0.2-1.0) mg/dL AST (15-37) U/L ALT (14-59) U/L Alkaline Phosphatase (46-116) U/L Troponin I (0.00-0.056) ng/mL C-Reactive Protein (<1.0) mg/dL NT-Pro-B Natriuret Pep (0-125) pg/mL Total Protein (6.4-8.2) g/dl Albumin (3.4-5.0) g/dl Globulin gm/dL Albumin/Globulin Ratio (1-2) Influenza Type A RNA Positive H (NEGATIVE) Influenza Type B RNA Negative (NEGATIVE) SARS-CoV-2 RNA (RACHEL) Negative (NEGATIVE) 11/06/21 11/06/21 11/06/21 Range/Units 10:32 10:58 10:58 WBC 5.19 (3.98-10.04) K/mm3 RBC 4.21 (3.98-5.22) M/mm3 Hgb 12.3 D (11.2-15.7) gm/dl Hct 40.4 (34.1-44.9) % MCV 96.0 H D (79.4-94.8) fl MCH 29.2 (25.6-32.2) pg MCHC 30.4 L (32.2-35.5) g/dl RDW Std Deviation 49.7 H (36.4-46.3) fL Plt Count 230 D (182-369) K/mm3 MPV 8.8 L (9.4-12.3) fl Neutrophils % (Manual) 73 H (40-60) % Band Neutrophils % 0 (0-10) % Lymphocytes % (Manual) 20 (20-40) % Atypical Lymphs % 0 % Monocytes % (Manual) 6 (2-10) % Eosinophils % (Manual) 1 (0.7-5.8) % Basophils % (Manual) 0 L (0.1-1.2) Platelet Estimate Adequate RBC Morph Comment Normal D-Dimer, Quantitative (0.19-0.50) mg/L Puncture Site Lt radial ABG pH 7.36 (7.35-7.45) ABG pCO2 52.3 H (35.0-45.0) mmHg ABG pO2 50.0 L (80.0-100.0) mmHg ABG HCO3 28.9 H (22.0-26.0) meq/L ABG O2 Saturation 85.6 L (96.0-97.0) % ABG Base Excess 3.1 H (-2-2.0) Philip Test Positive O2 Delivery Device Nasal cannula Oxygen Flow Rate 3.0 PEEP cmH20 Sodium 144 (136-145) mEq/L Potassium 2.8 L (3.5-5.1) mEq/L Chloride 100 (98-107) mEq/L Carbon Dioxide 33 H (21-32) mEq/L Anion Gap 13.8 (5-15) BUN 18 (7-18) mg/dL Creatinine 1.0 (0.55-1.02) mg/dL Est Cr Clr Drug Dosing 45.78 mL/min Estimated GFR (MDRD) 55 (>60) mL/min BUN/Creatinine Ratio 18.0 (14-18) Glucose 168 H (70-99) mg/dL Lactic Acid (0.4-2.0) mmol/L Calcium 8.8 (8.5-10.1) mg/dL Total Bilirubin 0.2 (0.2-1.0) mg/dL AST 19 (15-37) U/L ALT 30 (14-59) U/L Alkaline Phosphatase 66 (46-116) U/L Troponin I < 0.017 (0.00-0.056) ng/mL C-Reactive Protein 1.1 H* (<1.0) mg/dL NT-Pro-B Natriuret Pep (0-125) pg/mL Total Protein 6.8 (6.4-8.2) g/dl Albumin 3.3 L (3.4-5.0) g/dl Globulin 3.5 gm/dL Albumin/Globulin Ratio 0.9 L (1-2) Influenza Type A RNA (NEGATIVE) Influenza Type B RNA (NEGATIVE) SARS-CoV-2 RNA (RACHEL) (NEGATIVE) 11/06/21 11/06/21 Range/Units 10:58 12:27 WBC (3.98-10.04) K/mm3 RBC (3.98-5.22) M/mm3 Hgb (11.2-15.7) gm/dl Hct (34.1-44.9) % MCV (79.4-94.8) fl MCH (25.6-32.2) pg MCHC (32.2-35.5) g/dl RDW Std Deviation (36.4-46.3) fL Plt Count (182-369) K/mm3 MPV (9.4-12.3) fl Neutrophils % (Manual) (40-60) % Band Neutrophils % (0-10) % Lymphocytes % (Manual) (20-40) % Atypical Lymphs % % Monocytes % (Manual) (2-10) % Eosinophils % (Manual) (0.7-5.8) % Basophils % (Manual) (0.1-1.2) Platelet Estimate RBC Morph Comment D-Dimer, Quantitative (0.19-0.50) mg/L Puncture Site Lt radial ABG pH 7.36 (7.35-7.45) ABG pCO2 55.2 H (35.0-45.0) mmHg ABG pO2 76.0 L (80.0-100.0) mmHg ABG HCO3 30.2 H (22.0-26.0) meq/L ABG O2 Saturation 95.7 L (96.0-97.0) % ABG Base Excess 4.1 H (-2-2.0) Philip Test Positive O2 Delivery Device Cpap Oxygen Flow Rate 6.0 PEEP 10.0 cmH20 Sodium (136-145) mEq/L Potassium (3.5-5.1) mEq/L Chloride (98-107) mEq/L Carbon Dioxide (21-32) mEq/L Anion Gap (5-15) BUN (7-18) mg/dL Creatinine (0.55-1.02) mg/dL Est Cr Clr Drug Dosing mL/min Estimated GFR (MDRD) (>60) mL/min BUN/Creatinine Ratio (14-18) Glucose (70-99) mg/dL Lactic Acid (0.4-2.0) mmol/L Calcium (8.5-10.1) mg/dL Total Bilirubin (0.2-1.0) mg/dL AST (15-37) U/L ALT (14-59) U/L Alkaline Phosphatase (46-116) U/L Troponin I (0.00-0.056) ng/mL C-Reactive Protein (<1.0) mg/dL NT-Pro-B Natriuret Pep 194 H (0-125) pg/mL Total Protein (6.4-8.2) g/dl Albumin (3.4-5.0) g/dl Globulin gm/dL Albumin/Globulin Ratio (1-2) Influenza Type A RNA (NEGATIVE) Influenza Type B RNA (NEGATIVE) SARS-CoV-2 RNA (RACHEL) (NEGATIVE) Meds: Medications Discontinued Medications Generic Name Dose Route Start Last Admin Trade Name Freq PRN Reason Stop Dose Admin Albuterol/Ipratropium 3 ml 11/06/21 10:32 11/06/21 10:43 Albuterol/Ipratropium 3.0-0.5 Mg/3 Ml Neb Soln NEB 11/06/21 10:33 3 ml ONETIME ONE Administration Potassium Chloride 10 meq/ 100 mls @ 100 mls/hr 11/06/21 12:30 11/06/21 12:45 Premix IV 11/06/21 16:29 100 mls/hr Q1H FAISAL Administration Sodium Chloride 1,000 mls @ 50 mls/hr 11/06/21 13:00 11/06/21 13:19 Normal Saline IV 50 mls/hr ASDIRECTED FAISAL Administration Oseltamivir Phosphate 75 mg 11/06/21 12:26 11/06/21 12:45 Oseltamivir 75 Mg Cap PO 11/06/21 12:27 75 mg ONETIME ONE Administration Potassium Chloride 40 meq 11/06/21 12:17 11/06/21 12:45 Potassium Chloride 20 Meq Tab.Er PO 11/06/21 12:18 40 meq ONETIME ONE Administration Sodium Chloride 10 ml 11/06/21 10:27 11/06/21 11:13 Sodium Chloride 0.9% 10 Ml Syringe FLUSH 10 ml ASDIRECTED PRN Administration Keep Vein Open Departure - Departure Time of Disposition: 15:10 Disposition: DC/Tfer to Acute Hospital 02 Condition: Good Clinical Impression: Hypoxia, Influenza A, COPD exacerbation - Discharge Information Referrals: PCP,None [Primary Care Provider] - Forms: ED Department Discharge Sepsis Event Note (ED) - Evaluation Sepsis Screening Result: Possible Sepsis Risk
== END 2021-11-06 14:07 ==
LOC: JD.ED 10:10
DX: J44.1 Chronic obstructive pulmonary disease with (acute) exacerbation (principal); J10.1 Influenza due to other identified influenza virus with other respiratory manifestations; R09.02 Hypoxemia; I11.0 Hypertensive heart disease with heart failure; I50.9 Heart failure, unspecified; E11.9 Type 2 diabetes mellitus without complications; E78.00 Pure hypercholesterolemia, unspecified; M19.90 Unspecified osteoarthritis, unspecified site; Z86.16 Personal history of COVID-19; Z88.1 Allergy status to other antibiotic agents; Z88.8 Allergy status to other drugs, medicaments and biological substances; Z79.82 Long term (current) use of aspirin; Z79.899 Other long term (current) drug therapy; Z72.0 Tobacco use; Z20.822 Contact with and (suspected) exposure to COVID-19
CPT/HCPCS: 0240U; 36415; 36600; 71045; 80053; 82803; 83605; 83880; 84484; 85007; 85027; 85379; 86140; 87040; 93005; 94640; 94660; 96365; 99285; A9270; J3480; J7030; J7620-GY

== ENCOUNTER 2023-06-01 12:42 | Emergency (ER) | payer MEDICARE, BC ==
[2023-06-01 13:14] VITALS: PULSE 79
[2023-06-01 14:35] LABS: BASOPHILS ABSOLUTE AUTO 0.02 K/mm3 (0.01-0.08); BASOPHILS PERCENT AUTO 0.3 % (0.1-1.2); EOSINOPHILS ABSOLUTE AUTO 0.14 K/mm3 (0.04-0.36); EOSINOPHILS PERCENT AUTO 2.2 (0.7-5.8); HEMOGLOBIN 13.8 gm/dl (11.2-15.7); IMMATURE GRAN ABSOLUTE AUTO 0.01 K/mm3 (0.00-0.10); IMMATURE GRAN PERCENT AUTO 0.2 % (<=1.0); LYMPHOCYTES ABSOLUTE AUTO 1.99 K/mm3 (1.18-3.74); LYMPHOCYTES PERCENT AUTO 30.7 % (19.3-51.7); MEAN CORPUSCULAR HGB CONC 32.9 g/dl (32.2-35.5); MEAN CORPUSCULAR VOLUME 94.4 fl (79.4-94.8); MEAN PLATELET VOLUME 8.8 fl (9.4-12.3); MONOCYTES ABSOLUTE AUTO 0.56 K/mm3 (0.24-0.36); MONOCYTES PERCENT AUTO 8.6 % (4.7-12.5); NEUTROPHILS ABSOLUTE AUTO 3.77 K/mm3 (1.56-6.13); PLATELET COUNT,PLT 327 K/mm3 (182-369); RED BLOOD CELL COUNT 4.45 M/mm3 (3.98-5.22); WHITE BLOOD CELL COUNT,WBC 6.49 K/mm3 (3.98-10.04)
[2023-06-01 14:46] LABS: PROTHROMBIN TIME 9.8 SECONDS (9.7-12.0)
[2023-06-01 14:48] LABS: PTT,PARTIAL THROMBOPLSTIN TIME 24.5 SECONDS (21.7-31.4)
[2023-06-01 14:50] LABS: ALBUMIN 3.7 g/dl (3.4-5.0); ANION GAP 13.6 (5-15); BILIRUBIN TOTAL 0.5 mg/dL (0.2-1.0); BUN/CREATININE RATIO 13.6 (14-18); CALCIUM 9.7 mg/dL (8.5-10.1); CREATININE 1.1 mg/dL (0.55-1.02); EST CRCL DRUG DOSING (CG) 37.83 mL/min; INR < 0.93; POTASSIUM,K 3.6 mEq/L (3.5-5.1); PROTEIN TOTAL,TP 7.6 g/dl (6.4-8.2)
[2023-06-01 16:14] VITALS: BP 119/79
== END 2023-06-01 16:05 | disposition home or self-care (01) ==
LOC: JD.ED 12:42
DX: M66.0 Rupture of popliteal cyst (principal); I11.0 Hypertensive heart disease with heart failure; I50.9 Heart failure, unspecified; I25.2 Old myocardial infarction; E78.00 Pure hypercholesterolemia, unspecified; J44.9 Chronic obstructive pulmonary disease, unspecified; M19.90 Unspecified osteoarthritis, unspecified site; E11.9 Type 2 diabetes mellitus without complications; Z86.16 Personal history of COVID-19; Z88.5 Allergy status to narcotic agent; Z88.1 Allergy status to other antibiotic agents; Z79.82 Long term (current) use of aspirin; Z79.899 Other long term (current) drug therapy; Z79.84 Long term (current) use of oral hypoglycemic drugs
CPT/HCPCS: 36415; 80053; 85025; 85610; 85730; 93971-26-LT; 93971-LT; 99283; 99284